=== PATIENT | female | born 1965 | race Caucasian/White ===

== ENCOUNTER → 2025-01-02 17:46 | Outpatient (CLI) | payer SELFPAY ==
[2025-01-02 18:37] LABS: Influenza A - CEPHEID Flu A NEGATIVE (NEGATIVE); Influenza B - CEPHEID Flu B NEGATIVE (NEGATIVE)
[2025-01-02 18:46] LABS: COVID-19 CEPHEID 4-PLEX PCR POSITIVE (Negative)
== END ==
PROVIDERS: Visit Provider Chiropractor
DX: R05.9 Cough, unspecified (principal)
CPT/HCPCS: 87637